=== PATIENT | female | born 1995 | race Hispanic/Latino ===

== ENCOUNTER 2019-03-03 11:42 | Emergency (ER) | payer SELFPAY ==
[~2019-03-03] VITALS: Ht 152.4 cm; Wt 71.0 kg
[~2019-03-03 11:42] MED LIST: IBUPROFEN600 MG PO; PRENATA8 PO
[2019-03-03 12:37] VITALS: BP 103/59
== END 2019-03-03 12:38 | disposition home or self-care (01) | DRG 833 ==
LOC: ED 11:42
DX: O9A.212 Injury, poisoning and certain other consequences of external causes complicating pregnancy, second trimester (principal); S30.0XXA Contusion of lower back and pelvis, initial encounter; W17.89XA Other fall from one level to another, initial encounter; Z3A.24 24 weeks gestation of pregnancy

== ENCOUNTER 2020-08-09 01:53 | Emergency (ER) | payer SELFPAY ==
[~2020-08-09] VITALS: Ht 152.4 cm; Wt 60.0 kg
[2020-08-09 02:00] VITALS: BP 108/52
[2020-08-09 02:39] LABS: ANION GAP 17 (6-22 (CALC)); BILIRUBIN, TOTAL 0.3 mg/dL (0.0-1.4); BUN 6 mg/dL (7-17); BUN/CREATININE RATIO 10 (12-20 (CALC)); CARBON DIOXIDE 20 mmol/l (22-30); CHLORIDE 107 mmol/l (95-108); CREATININE 0.6 mg/dL (0.5-1.0); GFR > 60 ML/MIN (>=60 (CALC)); GFR FOR AFR.AMER. > 60 ML/MIN (>=60 (CALC)); POTASSIUM 3.4 mmol/l (3.5-5.1); SODIUM 141 mmol/l (137-146)
[2020-08-09 02:42] LABS: HEMATOCRIT 41.4 % (37.0-47.0); HEMOGLOBIN 13.3 g/dl (12.0-16.0); IMMATURE GRANULOCYTES 0.3 % (0.0-5.0); MEAN CELL VOLUME 83.6 fL CALC (80.0-100.0); MEAN CORPUSCULAR HGB 26.9 pG CALC (26.0-32.0); MEAN CORPUSCULAR HGB CONC 32.1 g/dL CAL (32.0-36.0); NEUT# 5.25 thou/uL (2.00-7.15); RED BLOOD COUNT 4.95 mill/uL (4.20-5.60); RED CELL DISTRI WIDTH 12.3 % (11.5-15.5)
[2020-08-09 02:43] LABS: ALBUMIN 4.8 g/dL (3.2-5.0); ALKALINE PHOSPHATASE 87 u/l (38-126); SGOT/AST 30 u/l (14-36); TOTAL PROTEIN 8.4 g/dL (6.3-8.2)
== END 2020-08-09 03:15 | disposition left against medical advice (07) | DRG 884 ==
LOC: ED 01:53 → AMA 03:36
PROVIDERS: Emergency Medicine
DX: R45.1 Restlessness and agitation (principal); R06.4 Hyperventilation; Z91.19 Patient's noncompliance with other medical treatment and regimen

== ENCOUNTER 2022-06-21 11:03 | Emergency (ER) | payer SELFPAY ==
[~2022-06-21] VITALS: Ht 154.9 cm; Wt 75.8 kg
[2022-06-21 11:19] VITALS: BP 133/96
[2022-06-21 11:30] VITALS: BP 109/79
[2022-06-21 11:45] VITALS: BP 121/83
[2022-06-21] MEDS ORDERED: AMOXICILLIN500 M2 PO (11:49)
[2022-06-21 12:12] VITALS: BP 121/83
== END 2022-06-21 12:00 | disposition home or self-care (01) | DRG 153 ==
LOC: ED 11:03
DX: H66.92 Otitis media, unspecified, left ear (principal); Z20.822 Contact with and (suspected) exposure to COVID-19

== ENCOUNTER 2022-12-10 21:17 | Emergency (ER) | payer MEDICAID ==
[~2022-12-10] VITALS: Ht 154.9 cm; Wt 68.0 kg
[~2022-12-10 21:17] MED LIST changes: +AMOXICILLIN500 M2 PO
[2022-12-10 21:55] VITALS: BP 134/84
[2022-12-10 22:00] VITALS: BP 115/82
[2022-12-10 22:15] VITALS: BP 117/81
[2022-12-10 22:30] VITALS: BP 114/79
[2022-12-10 22:45] VITALS: BP 128/86
[2022-12-10] MEDS ORDERED: LORTAB 1010 MG PO (22:50)
[2022-12-10] MEDS ORDERED: ZOVIRAX52 TOP (22:50)
[2022-12-10] MEDS ORDERED: FAMCICLOVIR500 MG PO (22:50)
[2022-12-10 23:00] VITALS: BP 113/77
== END 2022-12-10 22:57 | disposition home or self-care (01) ==
LOC: ED 21:17
DX: B02.9 Zoster without complications (principal)